=== PATIENT | male | born 1990 | race Caucasian/White ===

== ENCOUNTER 2017-10-30 07:36 | Emergency (ER) | payer MEDICAID ==
[2017-10-30 07:49] VITALS: BMI 31.8
--- NOTE | 2017-10-30 08:01 | ED PDOC ---
Arrival/HPI - General Chief Complaint: Medical Clearance Time Seen by Provider: 10/30/17 07:39 Historian: Patient, Parent, Family - History of Present Illness Narrative History of Present Illness (Text): 10/30/17 07:55 27 year old male, whose PMH includes kidney transplant, who presents to the emergency department accompanied by family members to "shaking" after taking antiviral med Family reports patient was taking Foscarnet and the medication was changed to Letermovir when mother noted patient was turning red and shaking s/p dose this morning. Patient returned to baseline (MR) current time is agitated. Patient is currently asymptomatic with no other complaints. PMD: Dr. Teixeira Lan Analyst: Dr. Cerda 10/30/17 11:38 10/30/17 14:20 Time/Duration: Prior to Arrival Symptom Onset: Sudden Symptom Course: Improving Context: Home Past Medical History - Provider Review Nursing Documentation Reviewed: Yes - Infectious Disease Hx of Infectious Diseases: None - Tetanus Immunization Tetanus Immunization: Up to Date - Cardiac Hx Pacemaker: No - Pulmonary Hx Respiratory Disorders: No - Neurological Hx Paralysis: No - HEENT Hx HEENT Disorder: No - Renal Hx Renal Failure: Yes (HD m-w-) Other/Comment: HD today 03/11/2015. kidney transplant July 2017 - Endocrine/Metabolic Hx Endocrine Disorders: No - Hematological/Oncological Hx Blood Transfusions: No Hx Blood Transfusion Reaction: No - Integumentary Hx Dermatological Disorder: No - Musculoskeletal/Rheumatological Hx Musculoskeletal Disorders: No - Gastrointestinal Hx Gastrointestinal Disorders: No - Genitourinary/Gynecological Hx Genitourinary Disorders: No - Psychiatric Hx Substance Use: No - Past Surgical History Past Surgical History: No Previous - Surgical History Other/Comment: kidney transplant 2017 R side - Anesthesia Hx Anesthesia Reactions: No Hx Malignant Hyperthermia: No - Suicidal Assessment Feels Threatened In Home Enviroment: No Family/Social History - Physician Review Nursing Documentation Reviewed: Yes Family/Social History: Unknown Family HX Smoking Status: Never Smoked Hx Alcohol Use: No Hx Substance Use: No Hx Substance Use Treatment: No Allergies/Home Meds Allergies/Adverse Reactions: Allergies No Known Allergies Allergy (Verified 08/11/15 10:09) Home Medications: Home Meds Medication Instructions Recorded Confirmed Cinacalcet [Sensipar] 1 tab PO DAILY 03/12/15 12/28/15 Sevelamer [Renagel] 1 tab PO QID 03/12/15 12/28/15 Review of Systems - Physician Review All systems were reviewed & negative as marked: Yes - Review of Systems Constitutional: absent: Fevers Respiratory: absent: SOB Cardiovascular: absent: Chest Pain Skin: Other (redness) Neurological: Other (shaking ) Physical Exam Vital Signs Reviewed: Yes Vital Signs Temp Pulse Resp BP Pulse Ox 10/30/17 12:30 98.0 F 151 H 19 98 10/30/17 11:55 154 H 20 147/116 H 97 10/30/17 10:30 141 H 23 99 10/30/17 09:38 108 H 21 161/114 H 97 10/30/17 07:49 98.2 F 117 H 18 166/110 H 98 Temperature: Afebrile Blood Pressure: Hypertensive Pulse: Tachycardic Respiratory Rate: Normal Appearance: Positive for: Well-Appearing, Non-Toxic, Comfortable Pain Distress: None Mental Status: Positive for: Alert and Oriented X 3 - Systems Exam Head: Present: Atraumatic, Normocephalic Pupils: Present: PERRL Extroacular Muscles: Present: EOMI Conjunctiva: Present: Normal Respiratory/Chest: Present: Clear to Auscultation, Good Air Exchange. No: Respiratory Distress, Accessory Muscle Use, Wheezes, Decreased Breath Sounds, Rales, Rhonchi, Tachypneic Cardiovascular: Present: Regular Rate and Rhythm, Normal S1, S2. No: Murmurs Abdomen: Present: Normal Bowel Sounds. No: Tenderness, Distention, Peritoneal Signs, Rebound, Guarding Neurological: Present: GCS=15, CN II-XII Intact, Speech Normal Skin: Present: Warm, Dry, Normal Color. No: Rashes Psychiatric: Present: Alert, Oriented x 3, Normal Insight, Normal Concentration Medical Decision Making ED Course and Treatment: 10/30/17 Impression: 27 year old male with unremarkable physical exam complaining of shaking and turning red s/p medication dose this morning r/o medication reaction vs bacteremia, viremia, tranplant failure. Plan: -- Labs -- Urinalysis -- Reassess and disposition Progress Notes: 10/30/17 09:15 Patient mother refused rectal temperature. 10/30/17 09:20 Chest X-ray: Creator : John Paul Clark MD COMPARISON: 01/16/2016 FINDINGS: LUNGS: No active pulmonary disease. PLEURA: No significant pleural effusion identified, no pneumothorax apparent. CARDIOVASCULAR: Moderate cardiomegaly. Moderate vascular congestion OSSEOUS STRUCTURES: No significant abnormalities. VISUALIZED UPPER ABDOMEN: Normal. OTHER FINDINGS: None. IMPRESSION: Moderate cardiomegaly. Moderate vascular congestion 10/30/17 10:40 EKG: Ordered, reviewed, and independently interpreted the EKG. poor tracing 2/2 motion Rate : 147 BPM Rhythm : sinus tachy 10/30/17 11:37 Patient mother refused EKG repeat. 10/30/17 11:[address] brumfield [facility]. labs and imaging reviewed. dr brumfield states pt can be admitted to [place], however family refuses, request transfer. case again discussed with dr brumfield, agrees to ER to ER transfer, does not request heparin. agrees with [facility]. case discussed with dr nathan, er attending [place]. accepts for transfer. 10/30/17 12:28 - Lab Interpretations Lab Results: 10/30/17 08:16 10/30/17 08:16 Lab Results 10/30/17 10:08: Lactate Dehydrogenase 567, Total Creatine Kinase 31 L, Troponin I 0.79 H*, NT-Pro-B Natriuret Pep 158 10/30/17 08:16: Sodium 142, Potassium 3.9, Chloride 107, Carbon Dioxide 23, Anion Gap 16, BUN 30 H, Creatinine 1.8 H, Est GFR ( Amer) 55, Est GFR ( Non-Af Amer) 45, Random Glucose 137 H, Calcium 9.4, Total Bilirubin 0.4, AST 38 , ALT 40, Alkaline Phosphatase 116, Total Protein 7.6, Albumin 3.7, Globulin 3.9 , Albumin/Globulin Ratio 0.9 L 10/30/17 08:16: PT 11.7, INR 1.02, APTT 26.1 10/30/17 08:16: WBC 4.5 D, RBC 3.11 L, Hgb 10.0 L, Hct 30.4 L, MCV 97.7, MCH 32.2, MCHC 32.9, RDW 19.6 H, Plt Count 177, MPV 10.7, Gran % 49.7 L, Lymph % ( Auto) 41.4 H, [place] % (Auto) 8.3 H, Eos % (Auto) 0.2 L, Baso % (Auto) 0.4, Gran # 2.22, Lymph # (Auto) 1.9, [place] # (Auto) 0.4, Eos # (Auto) 0.0, Baso # (Auto) 0.02 I have reviewed the lab results: Yes - RAD Interpretation Radiology Orders: 10/30/17 08:27 CXR [CHEST PORTABLE] [RAD] Stat - Medication Orders Current Medication Orders: Discontinued Medications Aspirin (Aspirin) 325 mg PO STAT STA Stop: 10/30/17 11:02 Last Admin: 10/30/17 12:17 Dose: Not Given Non-Admin Reason: Patient Refused Aspirin (Aspirin Supp) 300 mg RC STAT STA Stop: 10/30/17 12:06 Last Admin: 10/30/17 12:17 Dose: 300 mg Ondansetron HCl (Zofran Inj) 4 mg IVP STAT STA Stop: 10/30/17 10:52 Last Admin: 10/30/17 11:01 Dose: 4 mg IVP Administration Document 10/30/17 11:01 [email or web address] (Rec: 10/30/17 11:01 [email or web address] [id number]) Charges for Administration # of IVP Administrations 1 - Scribe Statement The provider has reviewed the documentation as recorded by the Hussein Swan Provider Scribe Attestation: All medical record entries made by the Scribe were at my direction and personally dictated by me. I have reviewed the chart and agree that the record accurately reflects my personal performance of the history, physical exam, medical decision making, and the department course for this patient. I have also personally directed, reviewed, and agree with the discharge instructions and disposition. Disposition/Present on Arrival - Present on Arrival Any Indicators Present on Arrival: No History of DVT/PE: No History of Uncontrolled Diabetes: No Urinary Catheter: No History of Decub. Ulcer: No History Surgical Site Infection Following: None - Disposition Have Diagnosis and Disposition been Completed?: Yes Diagnosis: NSTEMI (non-ST elevated myocardial infarction) Disposition: OTHER INSTITUTION Disposition Time: 12:00 Condition: FAIR Forms: [employer] ([place])
[2017-10-30 08:34] LABS: BASO # 0.02 K/mm3 (0.0-2.0); BASO % 0.4 % (0.0-3.0); EOS % 0.2 % (1.5-5.0); GRAN # 2.22 (1.4-6.5); GRAN % 49.7 % (50.0-68.0); LYMPH # 1.9 (1.2-3.4); LYMPH % 41.4 % (22.0-35.0); MEAN CELL VOLUME 97.7 fl (80.0-105.0); MEAN CORPUSCULAR HEMOGLOBIN 32.2 pg (25.0-35.0); MEAN CORPUSCULAR HGB CONC 32.9 g/dl (31.0-37.0); MEAN PLATELET VOLUME 10.7 fl (7.0-11.0); MONO # 0.4 (0.1-0.6); MONO % 8.3 % (1.0-6.0); RBC 3.11 10^6/uL (3.5-6.1); RED CELL DISTRIBUTION WIDTH 19.6 % (11.5-14.5); WHITE BLOOD COUNT 4.5 10^3/ul (4.5-11.0)
[2017-10-30 08:37] LABS: INR 1.02; PROTHROMBIN TIME 11.7 SECONDS (9.4-12.5)
[2017-10-30 08:39] LABS: PARTIAL THROMBOPLASTIN TIME 26.1 Seconds (25.1-36.5)
[2017-10-30 08:43] LABS: ALB/GLOB RATIO 0.9 (1.1-1.8); ALBUMIN 3.7 g/dL (3.0-4.8); CALCIUM 9.4 mg/dL (8.4-10.5)
--- NOTE | 2017-10-30 09:18 | RAD ---
Date of service: 10/30/2017 HISTORY: rigors COMPARISON: 01/16/2016 FINDINGS: LUNGS: No active pulmonary disease. PLEURA: No significant pleural effusion identified, no pneumothorax apparent. CARDIOVASCULAR: Moderate cardiomegaly. Moderate vascular congestion OSSEOUS STRUCTURES: No significant abnormalities. VISUALIZED UPPER ABDOMEN: Normal. OTHER FINDINGS: None. IMPRESSION: Moderate cardiomegaly. Moderate vascular congestion
[2017-10-30 10:52] LABS: TROPONIN I 0.79 ng/mL
[2017-10-30 11:56] VITALS: BP 147/116
[2017-10-30 12:49] VITALS: PULSE 151; RESP 19; TEMP 98; O2SAT 98
--- NOTE | 2017-10-30 19:14 | CARD ---
APPROVED REPORT Date of service: 10/30/2017 EKG Measurement Heart [id number] <Conclusion> Sinus tachycardia Artifacts Abnormal ECG
== END 2017-10-30 12:30 | disposition designated cancer center or children's hospital (05) ==
LOC: ED 07:36
DX: I21.4 Non-ST elevation (NSTEMI) myocardial infarction (principal); N18.9 Chronic kidney disease, unspecified; Z94.0 Kidney transplant status
CPT/HCPCS: 71045; 80053; 82550; 83615; 83880; 84484; 85025; 85610; 85730; 93005; 96374; 99283; J2405